=== PATIENT | male | born 1945 ===

== ENCOUNTER 2021-02-06 22:43 | Emergency (ER) | payer OTHER ==
[~2021-02-06] VITALS: Ht 177.8 cm; Wt 79.8 kg
[2021-02-06] MEDS ORDERED: METFORMIN HCL500 MG (23:25)
[2021-02-06] MEDS ORDERED: TAMSULOSIN HCL0.4 MG (23:25)
[2021-02-06] MEDS ORDERED: NORVASC5 MG (23:25)
[2021-02-06] MEDS ORDERED: LIPITOR40 MG (23:26)
[2021-02-06] MEDS ORDERED: COZAAR25 MG (23:26)
[2021-02-06] MEDS ORDERED: PROTONIX40 M1 (23:26)
[2021-02-07] MEDS ORDERED: CIPRO500 MG PO (04:39)
== END 2021-02-07 05:20 | disposition home or self-care (01) ==
LOC: ER 22:43
DX: N39.0 Urinary tract infection, site not specified (principal); R31.0 Gross hematuria